=== PATIENT | female | born 1985 | race Caucasian/White ===

== ENCOUNTER 2017-01-09 19:01 | Emergency (ER) | payer MEDICARE, MEDICAID ==
[~2017-01-09] VITALS: Ht 170.2 cm; Wt 159.1 kg
[~2017-01-09 19:01] MED LIST: DOXY-232 PO; IBUP-1827 PO; MEDR150D9 IM; NPR500T PO; PANT40TA2 PO; TOPI50TA88 PO
[2017-01-09 19:06] VITALS: BP 146/83; PULSE 78; RESP 16; O2SAT 99
--- NOTE | 2017-01-09 19:53 | ED.REPORT ---
HPI-Abd Pain F Under 40 Date of Service Jan 09, 2017 ED Provider: Bartolo Jo MD Pt is an obese 31 year old female with a history of cholecystectomy who presents to the ED complaining of abdominal bruising onset this morning when she woke up. She c/o associated intermittent abdominal pain (onset this morning) , as well as nausea, diarrhea, and decreased appetite onset for the past month. Pt denies cough, vomiting, and SOB. She reports that she has 3-4 episodes of diarrhea on a daily basis. The pt denies blood in stool, but reports that it smells like iron. She denies recent travel or antibiotics. Pt described the pain as burning and stabbing, and reports that it radiates to her pelvic area bilaterally. She also reports that she had a subjective fever early this month. Pt was seen at a walk-in clinic when her nausea and diarrhea started. She reports that her stool was tested as negative. The pt also reported that she is taking fertility pill and is currently trying to get . Nursing Notes Stated Complaint: ABD PAIN/BRUISING SENT FROM Chief Complaint: General Complaint Nursing Notes Reviewed: Yes ([employer], [employer] not reconciled) Allergies: Coded Allergies: Penicillins (Verified Allergy, Severe, Anaphylaxis, 01/09/17) cephalexin (Verified Allergy, Severe, Rash, throat swelling, 01/09/17) Sulfa (Sulfonamide Antibiotics) (Verified Adverse Reaction, Unknown, vomiting, 01/09/17) Scheduled Doxycycline Monohyd (Doxycycline Monohyd) 100 Mg Tablet 100 MG PO BID Medroxyprogesterone Acetate (Depo-Provera) 150 Mg/1 Ml Syringe 150 MG IM Q90 Pantoprazole DR (Protonix) 40 Mg Tablet 40 MG PO BID Topiramate (Topiramate) 50 Mg Tablet 50 MG PO BID Scheduled PRN Ibuprofen (Ibuprofen) 600 Mg Tablet 600 MG PO TID PRN PRN For Pain Naproxen (Naproxen) 500 Mg Tab 500 MG PO BID PRN PRN For Pain begin at start of menses and continue until menses complete Ondansetron ODT (Ondansetron ODT) 8 Mg Tab.rapdis 8 MG PO Q4H PRN PRN For Nausea oxyCODONE-Acetaminophen 7.5-325 mg (oxyCODONE-Acetaminophen 7.5-325 mg) 1 Each Tablet 1-2 TAB PO Q6H PRN PRN For Pain General Time Seen by MD: 19:52 Chief Complaint Abdominal pain Hx Obtained From: Patient Arrived By: Walk-in Sudden in Onset?: No Onset Occurred: 5 - 8 hours ago Symptom Duration: Since onset Quality: Painful, Stabbing Severity: Current: Moderate Severity: Maximum: Moderate Recent Healthcare: Recent doctor visit Similar Sx Previous: No Past Medical History Past Medical History Notes: States that she has an allergy to Ibuprofen and Naprosyn but it is "the color of the pill that causes adverse reactions" 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 Past Medical History Complex R sided ovarian cyst H/o of DVT Chronic Back pain with herniated disc Sciatica "Bladder issue" Depression Anxiety Dissociative disorder Febrile seizures when she was a child Genital Herpes PTSD DID Bronchitis Tick bite Morbid Obesity with BMI of 53.4 Reports: Asthma Reports: Obesity Past Surgical History abdominal hernia repair and hemmorrhoids Colonoscopy Reports: Cholecystectomy, Tonsillectomy Family History Mother of colon cancer Smoking History Never Smoker Social History Alcohol Use: Denies alcohol use Drug Use: Denies drug use Other Social History: Good social support, Local resident Occupation Does not work at 08/22/2014 Ambulatory Status Independent Review of Systems + Decreased appetite Constitutional: Denies: Fever GI: Reports: Abdominal pain, Diarrhea, Nausea, Denies: Vomiting Female: Reports: Pelvic pain Complete sys rev & neg: except as marked. Skin: Reports Bruising Physical Exam Initial Vital Signs Vital Signs (First) Date Time Temp Pulse Resp B/P Pulse Ox O2 Delivery O2 Flow Rate FiO2 01/09/17 19:06 36.7 78 16 146/83 99 Room Air Initial VS: Reviewed, Vital signs normal ENT: Mucous membranes moist, Conjunctiva normal, No scleral icterus Neck: Supple, Full range of motion Extremities: Vascular intact, Neuro intact Skin: Warm, Dry, No cyanosis Neurologic: Alert, Oriented, Nonfocal Psychiatric: Mood/affect normal, Behavior normal General/Constitutional: Awake, Alert, Cooperative, Not toxic appearing Behavior: Positive: Tearful Appearance / Presentation: Positive: Obese Respiratory / Chest: Atraumatic, Breath sounds NL, Breath sounds = bilat Cardiovascular: Heart rate NL, Regular rhythm, Heart sounds NL Abdomen: Atraumatic, Soft Abdomen is obese. I don't appreciate much clinical tenderness, but she reports pain in her lower abdomen. Extraordinary faint bruising or discoloration. It is not clear if it is true ecchymosis or acuity. She does not have Preston Navarro's Sign. Back: Atraumatic, Full range of motion Interpretation & Diagnostics Lab Results Interpretation Result Diagram: 01/09/17205701/09/172057 Test 01/09/17 20:03 01/09/17 20:58 Urine Color Yellow (YELLOW) Urine Appearance Clear (CLEAR,HAZY) Urine pH 5.0. (5.0-8.0) Urine Specific [place] 1.015 (1.003-1.035) Urine Protein Negativemg/dL (NEG,TRACE) Urine Glucose (UA) Negativemg/dL (NEGATIVE) Urine Ketones Negativemg/dL (NEGATIVE) Urine Occult Blood Negative (NEGATIVE) Urine Nitrite Negative (NEGATIVE) Urine Bilirubin Negative (NEGATIVE) Urine Urobilinogen Normalmg/dL (NORMAL) Urine Leukocyte Esterase Negative (NEGATIVE) Urine RBC 0-2/hpf (0-2) Urine WBC 0-5/hpf (0-5) Urine Epithelial Cells Few/hpf (NONE-MOD) Urine Crystals None seen (NONE SEEN) Urine Bacteria Few/hpf (NONE-FEW) Urine Hyaline Casts None/lpf (NONE) Urine Granular Casts None seen (NONE SEEN) Urine Waxy Casts None seen (NONE SEEN) Urine Red Blood Cell Casts None seen (NONE SEEN) Urine White Blood Cell Casts None seen (NONE SEEN) Urine Mucus Present (None Seen) Urine Trichomonas None seen (NONE SEEN) Urine Yeast None (NONE SEEN) Urinalysis Comment None Urine Culture Reflexed Not indicated Hold Urine Received (Received) White Blood Count 9.7th/mm3 (3.8-10.1) Red Blood Count 4.53mil/mm3 (3.90-5.20) Hemoglobin 12.4g/dL (12.0-15.6) Hematocrit 37.9% (35.0-46.0) Mean Corpuscular Volume 83.7fL (81-100) Mean Corpuscular Hemoglobin 27.4pg (27.0-35.0) Mean Corpuscular Hemoglobin Concent 32.7% (32.0-37.0) Red Cell Distribution Width 14.6% (12.3-15.4) Platelet Count 332bil/L (150-400) Neutrophils (%) (Auto) 58.2% (40-74) Lymphocytes (%) (Auto) 33.2% (14-46) Monocytes (%) (Auto) 7.3% (4-12) Eosinophils (%) (Auto) 0.7% (0-5) Basophils (%) (Auto) 0.2% (0-3) Sodium Level 138mEq/L (134-144) Potassium Level 4.1mEq/L (3.5-5.2) Chloride Level 102mEq/L (97-108) Carbon Dioxide Level 21mmol/L (18-29) Blood Urea Nitrogen 8mg/dL (6-20) Creatinine 0.42mg/dL (0.57-1.00) Estimat Glomerular Filtration Rate 256mL/min (>59) Glucose Level 81mg/dL (60-99) Calcium Level 9.6mg/dL (8.5-10.1) Magnesium Level 1.8mg/dL (1.6-2.6) Total Bilirubin 0.3mg/dL (0.0-1.2) Aspartate Amino Transf (AST/SGOT) 30U/L (0-50) Alanine Aminotransferase (ALT/SGPT) 31U/L (0-32) Alkaline Phosphatase 96U/L (25-150) Total Protein 7.2g/dL (6.4-8.4) Albumin 3.7g/dL (3.4-5.0) Lipase 28U/L (13-60) Lab Results Interpretation: CBC normal CMP normal negative UA negative CT Abd / Pelvis Interpretation IMPRESSION: 1. Prominent low attenuation ovarian foci are suggestive of cysts. Right lower quadrant lymph nodes subcentimeter in size with a normal appendix. Findings can be related to mesenteric adenitis. Dictated by: Sravani Menendez M.D. on 01/09/2017 at 22:07 Study type: Abdominal CT IV contrast Interpretation / Wet Read by: Interpret - Radiologist Re-Eval/Medical Decision Med Decision/Clinical Course This is a 31-year-old obese female with a history of polycystic ovarian syndrome who presents numbers department saying she had not felt well for a few days, then this morning developed abdominal pain, felt that she had bruising across her lower abdomen and developed spontaneously in the absence of trauma, and worsening pain so went to urgent cares referred to the ED for further evaluation. She has not had fevers, worse the pain is all across the lower abdomen. She had decreased intake with some nausea. Is afebrile, nontoxic but is in tears. Habits obese, but not particularly tender, I do not appreciate tan signs of peritonitis. SHe does not have guarding or rebound. There is very faint possible ecchymosis is subtle-and not definite. It is not a Tevin or Preston Navarro's sign. And its clinical significance is uncertain Records indicate a history of complex ovarian cyst in part secondary PCO S. Given her symptoms, workup was pursued, Gerardo was normal. UA was normal. CT the abdomen and pelvis renal couple small cyst, but also just possible mesenteric adenitis in the setting of a normal appendix. The CT finding, patient is treated empirically. She is ultimately discharged with some pain and nausea medicine and routine precautions. Patient is discharged in improved condition Source of Hx: Old records Re-Evaluation/Progress : Time of Eval: 22:38 )( Re-Eval Abdomen: Soft Re-Evaluation/Progress Note: Pt rechecked. Informed pt of plan for discharge. Pt understands and agrees with plan for discharge. F/U instructions and RTER warnings given. All questions addressed. Differential Diagnosis: Positive: Acute abdominal pain, Ovarian cyst, Negative: Abscess, Acute coronary syndrome, Appendicitis, Bladder outlet obstruct, Bowel obstruction, C. diff colitis, Cholangitis, Cholecystitis, Cholelithiasis, Diabetic ketoacidosis, Ectopic preg ruptured, Ectopic , Endometriosis, Esophageal rupture, Gun shot wound abdomen, Ovarian torsion, Pancreatitis, Peritonitis, Pyelonephritis, Stab wound abdomen, Urinary tract infection Counseled Regarding: Diagnosis, Lab results, Need for follow-up, When/why to return to ED Discharge & Departure Primary Impression: Mesenteric adenitis Disposition: Home Discharge Condition All VS Reviewed: Yes Condition: Stable Additional Instructions: 1. Your blood tests were normal. 2. Your CT Scan suggests you may have mesenteric adenitis causing your symptoms. This is a benign condition that resolves with time that occurs when the lymph nodes in the abdomen swell. 3. Drink small frequent sips of fluids and advance diet slowly as tolerated. 4. If needed take ondansetron 8mg (let dissolve under the tongue) up to every 4 hours for nausea. 5. If needed for pain take oxycodone/APAP 1-2 tabs up to every 6 hours. NOTE: This medication contains a narcotic and causes drowsiness. NO driving for at least 4 hours after taking. 6. Return if new, worsening, or uncontrolled symptoms occur. 7. Follow up with Dr. Huitron. Call for an appointment. Referrals: Adonay Huitron MD (PCP) Scribe Attestation Portions of this note were transcribed by Kendra Watt. I, Dr. Jo personally performed the history, physical exam and medical decision-making; I reviewed and confirmed the accuracy of the information in the transcribed note. Signed by: Catrachita Ratliff, 01/09/17 and 22:00. copies to: Adonay Huitron MD, Matthew F MD Jan 09, 2017 19:53 Kendra Reilly Jan 09, 2017 20:49
[2017-01-09] MEDS ORDERED: HYDROmorphone 0.5 mg/0.5 mL iSecure Syringe IVPUSH PRN (20:50)
[2017-01-09] MEDS ORDERED: Ondansetron 2 mg/mL 2 mL Inj IVPUSH ONE (20:50)
[2017-01-09 21:01] LABS: BASOPHILS % (AUTO) 0.2 % (0-3); EOSINOPHILS % (AUTO) 0.7 % (0-5); MONOCYTES % (AUTO) 7.3 % (4-12); Mean Corpuscular Hemoglobin 27.4 pg (27.0-35.0); Mean Corpuscular Volume 83.7 fL (81-100); NEUTROPHILS % (AUTO) 58.2 % (40-74); Platelet Count 332 bil/L (150-400)
[2017-01-09 21:24] LABS: Magnesium 1.8 mg/dL (1.6-2.6)
[2017-01-09 22:13] LABS: APPEARANCE,URINE CLEAR (CLEAR,HAZY); COLOR,URINE YELLOW (YELLOW)
--- NOTE | 2017-01-09 22:13 | DRSVH ---
PROCEDURE: CT ABDOMEN AND PELVIS WITH CONTRAST ([id number]) INDICATIONS: abd pain TECHNIQUE: After the administration of intravenous contrast, 5 mm thick sections acquired from the diaphragm to the symphysis. 5 mm coronal and sagittal reformats were acquired. For radiation dose reduction, the following was used: automated exposure control, adjustment of mA and/or kV according to patient iveth ventura. COMPARISON: [facility], CT, CT ABD PELVIS W CON, 02/29/2016, 4:51. FINDINGS: Image quality: Excellent. ABDOMEN: Lung bases: Lung bases are clear. Heart size is normal. Solid organs: Liver and spleen are normal in size and enhancement. Gallbladder has been removed. B iliary system is non dilated. Pancreas enhances normally. No adrenal nodules. Kidneys demonstrate normal size and enhancement, without hydronephrosis. Peritoneum and bowel: Bowel loops demonstrate normal wall thickness and caliber. No free fluid or a ir. The appendix is unremarkable. Nodes and vessels: No retroperitoneal or mesenteric adenopathy by size criteria. Aorta and inferior vena cava are normal in size. Scattered subcentimeter right lower quadrant nodes are present. Miscellaneous: No ventral hernias. PELVIS: Genitourinary: Bladder wall thickness is normal. The ovaries are prominent bilaterally with focal a reas of low attenuation, the largest on the left measuring 28 mm. Miscellaneous: No inguinal hernias or adenopathy. Bones: No suspicious bony lesions. No vertebral body compression fractures. IMPRESSION: 1. Prominent low attenuation ovarian foci are suggestive of cysts. Right lower quadrant lymph nodes subcentimeter in size with a normal appendix. Findings can be relate d to mesenteric adenitis. Dictated by: Sravani Menendez M.D. on 01/09/2017 at 22:07 Approved by: Sravani Menendez M.D. on 01/09/2017 at 22:11
[2017-01-09 22:14] LABS: OCCULT BLOOD,URINE NEGATIVE (NEGATIVE); PH,URINE 5.0. (5.0-8.0); UROBILINOGEN,URINE NORMAL (NORMAL)
[2017-01-09] MEDS ORDERED: _oxyCODONE/APAP 5-325 mg Tablet PO PRN (22:50)
[2017-01-09] MEDS ORDERED: _Ondansetron ODT 4 mg Tablet PO PRN (22:50)
[2017-01-09] MEDS ORDERED: OXYC-465 PO (22:56)
[2017-01-09] MEDS ORDERED: ONDA8TAB10 PO (22:56)
[2017-01-09 23:28] VITALS: BP 136/68; PULSE 88; RESP 14; O2SAT 98
== END 2017-01-09 23:31 | disposition home or self-care (01) ==
LOC: SED 19:01
DX: I88.0 Nonspecific mesenteric lymphadenitis (principal); J45.909 Unspecified asthma, uncomplicated; Z88.0 Allergy status to penicillin; Z88.2 Allergy status to sulfonamides
CPT/HCPCS: 36415; 74177; 80053; 81000; 81002; 81025; 83690; 83735; 85025; 96374; 96375; 99285; G0463; J1170; J2405; Q9967

== ENCOUNTER 2017-01-17 17:17 | Emergency (ER) | payer MEDICARE, MEDICAID ==
[~2017-01-17] VITALS: Ht 170.2 cm; Wt 154.6 kg
[~2017-01-17 17:17] MED LIST changes: +ONDA8TAB10 PO; +OXYC-465 PO
[2017-01-17 17:33] VITALS: BP 139/83; PULSE 63; RESP 20; O2SAT 98
[2017-01-17] MEDS ORDERED: hydrOXYzine Pamoate 25 mg Capsule PO ONE (19:50)
--- NOTE | 2017-01-17 20:33 | ED.REPORT ---
HPI-General Illness Date of Service Jan 17, 2017 ED Provider: Simone Ray DO Pt is a 31 year old female with a history of anxiety disorder and generalized panic attacks who presents to the ED via EMS after hyperventilating while at work. The pt reports that she was working at the [employer] when a customer got agitated, causing her to freeze and hyperventilate. She c/o associated tremors, crying, and dry mouth. Nursing Notes Stated Complaint: POSSIBLE SEIZURE Chief Complaint: General Complaint Nursing Notes Reviewed: Yes Allergies: Coded Allergies: Penicillins (Verified Allergy, Severe, Anaphylaxis, 01/09/17) cephalexin (Verified Allergy, Severe, Rash, throat swelling, 01/09/17) Sulfa (Sulfonamide Antibiotics) (Verified Adverse Reaction, Unknown, vomiting, 01/09/17) Scheduled Doxycycline Monohyd (Doxycycline Monohyd) 100 Mg Tablet 100 MG PO BID Medroxyprogesterone Acetate (Depo-Provera) 150 Mg/1 Ml Syringe 150 MG IM Q90 Pantoprazole DR (Protonix) 40 Mg Tablet 40 MG PO BID Topiramate (Topiramate) 50 Mg Tablet 50 MG PO BID Scheduled PRN Ibuprofen (Ibuprofen) 600 Mg Tablet 600 MG PO TID PRN PRN For Pain Naproxen (Naproxen) 500 Mg Tab 500 MG PO BID PRN PRN For Pain begin at start of menses and continue until menses complete Ondansetron ODT (Ondansetron ODT) 8 Mg Tab.rapdis 8 MG PO Q4H PRN PRN For Nausea oxyCODONE-Acetaminophen 7.5-325 mg (oxyCODONE-Acetaminophen 7.5-325 mg) 1 Each Tablet 1-2 TAB PO Q6H PRN PRN For Pain General Time Seen by MD: 18:32 Chief Complaint Other (Hyperventilating) Hx Obtained From: EMS Arrived By: Ambulance Sudden in Onset?: Yes Onset Occurred: Just prior to arrival Symptom Duration: Duration unknown Severity: Current: No pain currently Severity: Maximum: No pain Recent Healthcare: Recent doctor visit Similar Sx Previous: Yes Past Medical History Past Medical History Notes: States that she has an allergy to Ibuprofen and Naprosyn but it is "the color of the pill that causes adverse reactions" 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 Past Medical History Complex R sided ovarian cyst H/o of DVT Chronic Back pain with herniated disc Sciatica "Bladder issue" Depression Anxiety Dissociative disorder Febrile seizures when she was a child Genital Herpes PTSD DID Bronchitis Tick bite Morbid Obesity with BMI of 53.4 Reports: Asthma Reports: Obesity Past Surgical History abdominal hernia repair and hemmorrhoids Colonoscopy Reports: Cholecystectomy, Tonsillectomy Family History Mother of colon cancer Smoking History Never Smoker Social History Alcohol Use: Denies alcohol use Drug Use: Denies drug use Other Social History: Good social support, Local resident Occupation Does not work at 08/22/2014 Ambulatory Status Independent Review of Systems + Dry mouth + Hyperventilation + Crying Full Review of Systems Constitutional: Denies: Fever Respiratory: Denies: Non-productive cough Neurologic: Reports: Shaking Psychiatric: Reports: Anxiety Complete sys rev & neg: except as marked. Physical Exam Vital Signs Vital Signs Date Time Temp Pulse Resp B/P Pulse Ox O2 Delivery O2 Flow Rate FiO2 01/17/17 20:41 84 16 01/17/17 17:33 36.6 63 20 139/83 98 Room Air Initial VS: Reviewed Head / Eyes: Atraumatic, Normocephalic Neck: Supple, Full range of motion Respiratory: Breath sounds normal, Clear to auscultation, No respiratory distress Cardiovascular: Regular rate & rhythm, Heart sounds normal, Intact distal pulses Abdomen / GI: Soft, Non-tender Extremities: Vascular intact, Neuro intact Skin: Warm, Dry, No cyanosis Neurologic: Alert, Oriented, Nonfocal Psychiatric: Mood/affect normal, Behavior normal General/Constitutional: Awake, Alert, Cooperative, Not toxic appearing Interpretation & Diagnostics Lab Results Interpretation Test 01/17/17 18:40 Hold Urine Received (Received) Re-Eval/Medical Decision Med Decision/Clinical Course States he was medicated with hydroxyzine. All anxiety symptoms resolved. She was a bit sleepy but otherwise well. No suicidal ideations. Short course of hydroxyzine prescribed. She will not take when she has to drive operate machinery. She will not take any alcohol or sedating substances. She is discharged in stable condition feeling much better. Source of Hx: Old records Time of Eval: 20:29 Patient Status: Condition improved Re-Evaluation/Progress Note: Pt rechecked. Informed pt of plan for discharge. Pt understands and agrees with plan for discharge. F/U instructions and RTER warnings given. All questions addressed. Counseled Regarding: Diagnosis, Lab results, Need for follow-up, When/why to return to ED Discharge & Departure Primary Impression: Anxiety disorder Anxiety disorder type: unspecified anxiety disorder Qualified Code: F41.9 - Anxiety disorder, unspecified Disposition: Home Discharge Condition All VS Reviewed: Yes Condition: Stable Patient Instructions: Anxiety (ED) Additional Instructions: You have anxiety disorder. Set up a follow up appointment with your primary care provider or the referral doctor. Take hydroxyzine 1 every 8 hours to relieve your symptoms. This is a very sedating medication. Do not drive, drink, or operate machinery while taking this medication. Return to the emergency department for any new or worsening symptoms. Referrals: Adonay Huitron MD (PCP) Susana Lind MD Attestation Portions of this note were transcribed by Kendra Watt. I, Dr. Ray personally performed the history, physical exam and medical decision-making; I reviewed and confirmed the accuracy of the information in the transcribed note. Signed by: Catrachita Ratliff, 01/17/17 and 21:50. copies to: Susana Lind MD; Adonay Huitron MD, Todd P DO Jan 17, 2017 20:33 Kendra Reilly Jan 17, 2017 20:38
[2017-01-17 20:41] VITALS: PULSE 84; RESP 16
== END 2017-01-17 20:41 | disposition home or self-care (01) ==
LOC: EDBD 17:17 → SED 17:17
DX: F41.9 Anxiety disorder, unspecified (principal); J45.909 Unspecified asthma, uncomplicated; E66.01 Morbid (severe) obesity due to excess calories; Z86.718 Personal history of other venous thrombosis and embolism; F43.10 Post-traumatic stress disorder, unspecified; Z90.49 Acquired absence of other specified parts of digestive tract; Z68.43 Body mass index [BMI] 50.0-59.9, adult; Z88.0 Allergy status to penicillin; Z88.1 Allergy status to other antibiotic agents; Z88.2 Allergy status to sulfonamides
CPT/HCPCS: 81025; 82948; 84156; 84165; 99283; Q0177

== ENCOUNTER 2017-02-06 07:25 | Emergency (ER) | payer MEDICARE, MEDICAID ==
[~2017-02-06] VITALS: Ht 170.2 cm; Wt 154.6 kg
[2017-02-06 07:28] VITALS: BP 143/91; PULSE 90; RESP 12; O2SAT 100
[2017-02-06 08:41] LABS: APPEARANCE,URINE HAZY (CLEAR,HAZY); COLOR,URINE YELLOW (YELLOW); OCCULT BLOOD,URINE NEGATIVE (NEGATIVE); UROBILINOGEN,URINE NORMAL (NORMAL)
--- NOTE | 2017-02-06 08:42 | ED.REPORT ---
HPI-General Illness Date of Service Feb 06, 2017 ED Provider: Naila Braxton MD A 31 year old female with a history of PCOS, PTSD, sciatica and anxiety presents to the ED complaining of abdominal pain. The pt has been experiencing this pain intermittently for two days but it worsened today. The pain is diffuse but concentrated mostly on the right side and exacerbated by movement. This is accompanied by possible urinary retention, diarrhea, difficulty sleeping , nausea and dizziness. The pt denies fever or vomiting. The pt's last period was on 01/21/2017. Nursing Notes Stated Complaint: STOMACH PAIN/TROUBLE BREATHING/URINARY PROBLEMS Chief Complaint: Female Abdominal Pain Nursing Notes Reviewed: Yes Allergies: Coded Allergies: Penicillins (Verified Allergy, Severe, Anaphylaxis, 01/09/17) cephalexin (Verified Allergy, Severe, Rash, throat swelling, 01/09/17) Sulfa (Sulfonamide Antibiotics) (Verified Adverse Reaction, Unknown, vomiting, 01/09/17) Scheduled Doxycycline Monohyd (Doxycycline Monohyd) 100 Mg Tablet 100 MG PO BID Medroxyprogesterone Acetate (Depo-Provera) 150 Mg/1 Ml Syringe 150 MG IM Q90 Nitrofurantoin Macrocrystal (Nitrofurantoin Macrocrystal) 100 Mg Capsule 100 MG PO BID Pantoprazole DR (Protonix) 40 Mg Tablet 40 MG PO BID Topiramate (Topiramate) 50 Mg Tablet 50 MG PO BID Scheduled PRN Ibuprofen (Ibuprofen) 600 Mg Tablet 600 MG PO TID PRN PRN For Pain Naproxen (Naproxen) 500 Mg Tab 500 MG PO BID PRN PRN For Pain begin at start of menses and continue until menses complete Ondansetron ODT (Ondansetron ODT) 8 Mg Tab.rapdis 8 MG PO Q4H PRN PRN For Nausea oxyCODONE-Acetaminophen 7.5-325 mg (oxyCODONE-Acetaminophen 7.5-325 mg) 1 Each Tablet 1-2 TAB PO Q6H PRN PRN For Pain General Time Seen by MD: 07:39 Chief Complaint Abdominal pain Hx Obtained From: Patient Arrived By: Walk-in Sudden in Onset?: No Onset Occurred: 2 days ago Symptom Duration: Intermittent Recent Healthcare: No recent hospitalization, Recent doctor visit Similar Sx Previous: No Past Medical History Past Medical History Notes: States that she has an allergy to Ibuprofen and Naprosyn but it is "the color of the pill that causes adverse reactions" Patient is Rh+ CORRESPONDENCE SPECIALIST: Jovanycristi Past Medical History Complex R sided ovarian cyst H/o of DVT Chronic Back pain with herniated disc Sciatica "Bladder issue" Depression Anxiety Dissociative disorder Febrile seizures when she was a child Genital Herpes PTSD with seizures DID Bronchitis Tick bite Morbid Obesity with BMI of 53.4 Reports: Asthma Past Surgical History abdominal hernia repair and hemmorrhoids Colonoscopy Reports: Cholecystectomy, Tonsillectomy Family History Mother of colon cancer Smoking History Never Smoker Social History Alcohol Use: Denies alcohol use Drug Use: Denies drug use Other Social History: Good social support, , Local resident Occupation Does not work at 08/22/2014 Ambulatory Status Independent Review of Systems possible urinary retention Full Review of Systems Constitutional: Denies: Fever Respiratory: Denies: Non-productive cough, Shortness of breath Cardiovascular: Denies: Chest pain GI: Reports: Abdominal pain, Diarrhea, Nausea, Denies: Vomiting Musculoskeletal: Denies: Back pain, Neck pain Skin: Denies Rash Neurologic: Reports: Dizziness Complete sys rev & neg: except as marked. Physical Exam Vital Signs Vital Signs Date Time Temp Pulse Resp B/P Pulse Ox O2 Delivery O2 Flow Rate FiO2 02/06/17 07:28 36.6 90 12 143/91 100 Room Air Initial VS: Reviewed General/Constitutional: Awake, Alert Head / Eyes: Atraumatic, Normocephalic, PERRL, EOMI ENT: Atraumatic, Airway patent, Mucous membranes moist Neck: Atraumatic, Supple, Full range of motion Respiratory / Chest: Atraumatic, Breath sounds NL, Breath sounds = bilat, No respiratory distress Cardiovascular: Heart rate NL, Regular rhythm, Heart sounds NL Abdomen: Atraumatic, Soft tender RLQ with early peritoneal signs mild suprapubic tenderness Back: Atraumatic, Full range of motion Upper Extremities Upper Extremity / MS: Atraumatic, Full range of motion Lower Extremity / Pelvis / MS: Atraumatic, Full range of motion, No edema Skin: Atraumatic, Color NL, No rash, Warm, Dry Neurologic: Oriented X3, Speech NL, No motor deficits, No sensory deficits Psychiatric: Affect NL, Mood NL Interpretation & Diagnostics Lab Results Interpretation Result Diagram: 02/06/17 0845 02/06/17 0845 Test 02/06/17 08:00 02/06/17 08:45 Urine Color Yellow (YELLOW) Urine Appearance Hazy (CLEAR,HAZY) Urine pH 6.0 (5.0-8.0) Urine Specific [place] 1.025 (1.003-1.035) Urine Protein Negativemg/dL (NEG,TRACE) Urine Glucose (UA) Negativemg/dL (NEGATIVE) Urine Ketones Negativemg/dL (NEGATIVE) Urine Occult Blood Negative (NEGATIVE) Urine Nitrite Negative (NEGATIVE) Urine Bilirubin Negative (NEGATIVE) Urine Urobilinogen Normalmg/dL (NORMAL) Urine Leukocyte Esterase Negative (NEGATIVE) Urine RBC 0-2/hpf (0-2) Urine WBC 0-5/hpf (0-5) Urine Epithelial Cells Occasional/hpf (NONE-MOD) Urine Crystals None seen (NONE SEEN) Urine Bacteria Moderate/hpf (NONE-FEW) Urine Hyaline Casts None/lpf (NONE) Urine Granular Casts None seen (NONE SEEN) Urine Waxy Casts None seen (NONE SEEN) Urine Red Blood Cell Casts None seen (NONE SEEN) Urine White Blood Cell Casts None seen (NONE SEEN) Urine Mucus Present (None Seen) Urine Trichomonas None seen (NONE SEEN) Urine Yeast None (NONE SEEN) Urinalysis Comment None Urine Culture Reflexed Indicated White Blood Count 11.0th/mm3 (3.8-10.1) Red Blood Count 4.31mil/mm3 (3.90-5.20) Hemoglobin 11.9g/dL (12.0-15.6) Hematocrit 36.5% (35.0-46.0) Mean Corpuscular Volume 84.7fL (81-100) Mean Corpuscular Hemoglobin 27.6pg (27.0-35.0) Mean Corpuscular Hemoglobin Concent 32.6% (32.0-37.0) Red Cell Distribution Width 14.4% (12.3-15.4) Platelet Count 369bil/L (150-400) Neutrophils (%) (Auto) 53.7% (40-74) Lymphocytes (%) (Auto) 35.5% (14-46) Monocytes (%) (Auto) 8.5% (4-12) Eosinophils (%) (Auto) 1.7% (0-5) Basophils (%) (Auto) 0.2% (0-3) Sodium Level 140mEq/L (134-144) Potassium Level 4.1mEq/L (3.5-5.2) Chloride Level 103mEq/L (97-108) Carbon Dioxide Level 25mmol/L (18-29) Blood Urea Nitrogen 11mg/dL (6-20) Creatinine 0.44mg/dL (0.57-1.00) Estimat Glomerular Filtration Rate 242mL/min (>59) Glucose Level 97mg/dL (60-99) Calcium Level 9.1mg/dL (8.5-10.1) Magnesium Level 1.9mg/dL (1.6-2.6) Total Bilirubin 0.2mg/dL (0.0-1.2) Aspartate Amino Transf (AST/SGOT) 21U/L (0-50) Alanine Aminotransferase (ALT/SGPT) 20U/L (0-32) Alkaline Phosphatase 104U/L (25-150) Total Protein 7.1g/dL (6.4-8.4) Albumin 3.8g/dL (3.4-5.0) Lipase 35U/L (13-60) HCG Beta Subunit 0.500mIU/mL Lab Results Interpretation: urine dip normal CT Abd / Pelvis Interpretation IMPRESSION: Normal appendix. No acute abnormality. Presumed right ovarian cyst although technically indeterminate. This is unchanged in appearance since 01/09/17. If clinically warranted, further assessment with pelvic ultrasound could be performed. Dictated by: Cory Diallo M.D. on 02/06/2017 at 10:45 Approved by: Cory Diallo M.D. on 02/06/2017 at 11:01 Interpretation / Wet Read by: Interpret - Radiologist US FAST Exam less than 20 mL of urine in bladder post void Exam Performed by: ED physician Exam Type: Diagnostic Re-Eval/Medical Decision Med Decision/Clinical Course 31-year-old woman trying to get who presents with right lower quadrant pain over 24 hours worse over the last 8 hours with developing peritoneal signs on the way to the emergency department. Lab is essentially reassuring. Urinalysis suggests that she likely has a UTI. Seem to be improving however when getting up and out of bed still having right lower quadrant pain. CT scan shows the known right ovarian cyst without significant changes. Again still right lower quadrant pain possibility of ovarian torsion particularly given the 5 cm cyst on that ovary is still present. Ultrasound is ordered. Technically difficult due to body habitus. There able to see peripheral blood flow around the ovary but internal ovarian arterial flow is not seen again probably more due to technical difficulties then absence of flow. Patient was not tender with this exam. At this point I suspected ovarian torsion is far less likely. Long discussion with the patient regarding this. We will treat her for UTI and asked to return should pain continue. Source of Hx: Old records Time of Eval: 11:41 Re-Evaluation/Progress Note: Pt rechecked, who is sleeping but easily woken. She is not tender while laying down but has recurrent RLQ pain while moving to the bedside. CT scan results and the plan for US are discussed. Time of Eval: 13:54 Patient Status: Condition improved Re-Evaluation/Progress Note: Pt rechecked, who is comfortable. The diagnosis and plan for discharge are discussed. The pt understands and agrees with the plan. All questions are addressed at this time. Counseled Regarding: Diagnosis, Lab results, Need for follow-up, When/why to return to ED Discharge & Departure Primary Impression: UTI (urinary tract infection) Urinary tract infection type: site unspecified Hematuria presence: without hematuria Qualified Code: N39.0 - Urinary tract infection, site not specified Additional Impression: Ovarian cyst Ruled Out: Ovarian torsion, Appendicitis Disposition: Home Discharge Condition All VS Reviewed: Yes Condition: Stable Patient Instructions: Urinary Tract Infection in Women (ED) Additional Instructions: Thank you for allowing us to be a part of your care. No acute cause for your symptoms are identified. Your discomfort appears to be from a urinary tract infection. Take 100 mg Macrobid twice daily for seven days. I've tried very hard to prove that you do not have a torsed ovary (twisted and cutting off blood flow). I am going to suggest NO PAIN MEDICINE. If this pain is due to a bladder infection you will get better. If it really is the ovary, it will get worse and you will need to return to the ER. Call your primary care physician to arrange a follow up appointment this week. Return to the emergency department if you develop any new or worsening symptoms. thanks for spending the whole day with me, I hope you feel better soon! Referrals: Adonay Huitron MD (PCP) Scribe Attestation Portions of this note were transcribed by Deep Robbins. I, Dr. Braxton personally performed the history, physical exam and medical decision-making; I reviewed and confirmed the accuracy of the information in the transcribed note. Signed by: Catrachita Mcpherson, 02/06/2017 and 0844. copies to: Adonay Huitron MD, Shawna L MD Feb 06, 2017 08:42 DEEP ROBBINS Feb 06, 2017 08:49
[2017-02-06] MEDS ORDERED: 0.9% Sodium Chloride 1,000 ML IV ONE (08:43)
[2017-02-06] MEDS ORDERED: HYDROmorphone 0.5 mg/0.5 mL iSecure Syringe IVPUSH PRN (08:45)
[2017-02-06] MEDS ORDERED: Ondansetron 2 mg/mL 2 mL Inj IVPUSH ONE (08:45)
[2017-02-06 09:01] LABS: BASOPHILS % (AUTO) 0.2 % (0-3); EOSINOPHILS % (AUTO) 1.7 % (0-5); MONOCYTES % (AUTO) 8.5 % (4-12); Mean Corpuscular Hemoglobin 27.6 pg (27.0-35.0); Mean Corpuscular Volume 84.7 fL (81-100); NEUTROPHILS % (AUTO) 53.7 % (40-74); Platelet Count 369 bil/L (150-400)
[2017-02-06 09:35] LABS: Magnesium 1.9 mg/dL (1.6-2.6)
--- NOTE | 2017-02-06 11:02 | DRSVH ---
PROCEDURE: CT ABDOMEN AND PELVIS WITH CONTRAST ([id number]) INDICATIONS: RLQ abdominal pain TECHNIQUE: After the administration of intravenous contrast, 5 mm thick sections acquired from the diaphragm to the symphysis. 5 mm coronal and sagittal reformats were acquired. For radiation dose reduction, the following was used: automated exposure control, adjustment of mA and/or kV according to patient iveth ventura. COMPARISON: [facility], CT, CT ABD PELVIS W CON, 01/09/2017, 21:30. FINDINGS: Image quality: Excellent. ABDOMEN: Lung bases: Lung bases are clear. Heart size is normal. Solid organs: Liver and spleen are normal in size and enhancement. Gallbladder surgically absent. Biliary system is non dilated. Pancreas enhances normally. No adrenal nodules. Kidneys demonstrate normal size and enhancement, without hydronephrosis. Peritoneum and bowel: Bowel loops demonstrate normal wall thickness and caliber. No free fluid or a ir. Normal appendix. Rectum grossly unremarkable. No evidence of acute diverticulitis. Nodes and vessels: No retroperitoneal or mesenteric adenopathy by size criteria. Aorta and inferior vena cava are normal in size. Miscellaneous: No ventral hernias. PELVIS: Genitourinary: Bladder wall thickness is normal. Presumed right ovarian cyst, technically indetermi mary Miscellaneous: No inguinal hernias or adenopathy. Bones: No suspicious bony lesions. No vertebral body compression fractures. IMPRESSION: Normal appendix. No acute abnormality. Presumed right ovarian cyst although technically indeterminate. This is unchanged in appearance since 01/09/17. If clinically warranted, further assessment with pelvic ultrasound could be performed. Dictated by: Cory Diallo M.D. on 02/06/2017 at 10:45 Approved by: Cory Diallo M.D. on 02/06/2017 at 11:01
[2017-02-06] MEDS ORDERED: Nitrofurantoin Monohyd-Macrocryst 100 mg Capsule PO ONE (11:50)
[2017-02-06] MEDS ORDERED: NITR100C PO (13:59)
[2017-02-06 14:09] VITALS: BP 135/79; PULSE 64; O2SAT 99
--- NOTE | 2017-02-06 14:30 | DRSVH ---
PROCEDURE: US PELVIC SONOGRAM WITH TRANSVAG AND DOPPLER, LIMITED INDICATIONS: Pain, concern for Right ovarian torsion, confirm blood flow TECHNIQUE: Real-time scanning was performed of the pelvic organs, with image documentation. Additional endovagi nal scanning was necessary due to incomplete visualization of the adnexal and endometrial structures by transabdominal scanning. COMPARISON: [facility], CT, CT ABD PELVIS W CON, 02/06/2017, 10:30. FINDINGS: Transabdominal scanning: Limited scanning through the kidneys shows no hydronephrosis. No pathologi c free abdominal or pelvic fluid. Endovaginal scanning: Uterus: Uterus is normal in size at 9.2 x 4.1 x 6.1 cm. The endometrium measures 6.7 mm in combined thickness. Nabothian cysts incidentally noted. Ovaries: Right adnexa measures 7.5 x 4.7 x 3.9 cm. There is a 5.6 x 4.0 x 3.1 cm complex cyst identif ied in the right adnexa which corresponds to CT lesion identified 02/06/17. Left adnexa measures 5.8 x 3.1 x 4.4 cm. Left adnexa is poorly visualized do to patient body habitus, but appears grossly viki l. Normal arterial and venous flow identified in the right adnexa. Vascular flow in left adnexa canno t be assessed due to patient body habitus. IMPRESSION: 1. 5.6 x 4.0 x 3.1 cm complex right adnexal cyst. Recommend gynecologic consultation and follow up ul trasound in 4-6 months. 2. No evidence of right adnexal torsion. Please note intermittent torsion cannot be excluded by ultra sound. 3. Left adnexa poorly visualized due to body habitus and thus are flow left adnexa cannot be evaluate d Dictated by: Rossana Perry MD, PhD on 02/06/2017 at 14:23 Approved by: Rossana Perry MD, PhD on 02/06/2017 at 14:28
== END 2017-02-06 14:10 | disposition home or self-care (01) ==
LOC: SED 07:25
DX: N39.0 Urinary tract infection, site not specified (principal); N83.201 Unspecified ovarian cyst, right side; F43.10 Post-traumatic stress disorder, unspecified; F41.9 Anxiety disorder, unspecified; F32.9 Major depressive disorder, single episode, unspecified; J45.909 Unspecified asthma, uncomplicated; Z88.0 Allergy status to penicillin; Z86.718 Personal history of other venous thrombosis and embolism; Z88.1 Allergy status to other antibiotic agents; Z88.2 Allergy status to sulfonamides
CPT/HCPCS: 36415; 74177; 76830; 76856; 80053; 81000; 81025; 83690; 83735; 84702; 85025; 87086; 87088; 93976; 96361; 96374; 99285; J2405; J7030; Q9967